=== PATIENT | male | born 1955 | race Hispanic/Latino ===

== ENCOUNTER → 2024-08-02 | Day surgery (SDC) | payer MEDICARE ==
[2024-07-29 11:56] LABS: BASOPHILS # (AUTO) 0.1 (0.0-0.1); BASOPHILS % 0.8 % (0.0-1.0); EOSINOPHILS # (AUTO) 0.2 (0.0-0.4); EOSINOPHILS % 2.7 % (0.0-6.0); HEMATOCRIT 43.1 % (38.2-49.6); HEMOGLOBIN 14.1 g/dL (14.0-18.0); LYMPHOCYTES % 17.6 % (18.0-39.1); MEAN CORPUSCULAR HEMOGLOBIN 30.3 pg (28-32); MEAN CORPUSCULAR HGB CONC 32.7 g/dL (31-35); MEAN CORPUSCULAR VOLUME 92.7 fL (81-99); MONOCYTES # (AUTO) 0.6 (0.2-0.8); MONOCYTES % 9.8 % (4.4-11.3); NEUTROPHILS # (AUTO) 4.1 (2.1-6.9); NEUTROPHILS % 68.8 % (38.7-80.0); PLATELET COUNT 156 x10e3/uL (140-360); RED BLOOD COUNT 4.65 x10e6/uL (4.3-5.7); RED CELL DISTRIBUTION WIDTH 13.2 % (11.7-14.4); WHITE BLOOD COUNT 5.91 x10e3/uL (4.8-10.8)
[~2024-08-02] MED LIST: CENTRUM MEN'S1 EACH PO; CO Q-10100 MG PO; DEXAMETHASONE SOD PHOS INJ 4 MG/ML SDV ONE; GLYCOPYRROLATE INJ 0.2 MG/ML VIAL ONE; IOPAMIDOL 610MG/1ML 300 MG/ML VIAL IV ONE; LIDOCAINE HCL 2% LOCAL INJ 5 ML SDV VIAL INJ ONE; LUMIGAN2.5 M1 OP; ONDANSETRON HCL INJ 2MG/ML 2ML 2 MG/ML VIAL ONE; PROPOFOL IV EMULSION 10 MG/ML 20 ML VIAL ONE; SEVOFLURANE INHAL SOLN 250 ML PEN BTL ONE; SIMVASTATIN20 MG PO; VIT D PO; ZESTRIL10 MG PO; calcium PO
[2024-08-02] MEDS: CEFTRIAXONE 1 GM VIAL ONE (06:05)
[2024-08-02] MEDS: LACTATED RINGER'S 1,000 ML ONE (06:05)
[2024-08-02 07:20] VITALS: TEMP 97.7
[2024-08-02 08:10] VITALS: BP 160/80; PULSE 68; RESP 16; O2SAT 97
== END | disposition home or self-care (01) ==
LOC: OR 05:23
PROVIDERS: ATTEND Urology
DX: N35.812 Other bulbous urethral stricture, male (principal); N32.89 Other specified disorders of bladder; N40.0 Benign prostatic hyperplasia without lower urinary tract symptoms; I10 Essential (primary) hypertension; E78.5 Hyperlipidemia, unspecified; F32.A Depression, unspecified; K28.9 Gastrojejunal ulcer, unspecified as acute or chronic, without hemorrhage or perforation; Z88.8 Allergy status to other drugs, medicaments and biological substances; Z01.810 Encounter for preprocedural cardiovascular examination; Z01.812 Encounter for preprocedural laboratory examination; Z01.818 Encounter for other preprocedural examination; Z79.899 Other long term (current) drug therapy
CPT/HCPCS: 36415; 52281; 71046; 74420; 85025; 93005; C1758; J0696; J1100; J2001; J2405; J2704; J7121; Q9967

== ENCOUNTER → 2025-01-03 | Day surgery (SDC) | payer MEDICARE ==
[2025-01-01 11:43] LABS: BASOPHILS # (AUTO) 0.1 (0.0-0.1); BASOPHILS % 0.8 % (0.0-1.0); EOSINOPHILS # (AUTO) 0.2 (0.0-0.4); EOSINOPHILS % 2.7 % (0.0-6.0); HEMATOCRIT 41.5 % (38.2-49.6); HEMOGLOBIN 13.9 g/dL (14.0-18.0); LYMPHOCYTES % 15.9 % (18.0-39.1); MEAN CORPUSCULAR HEMOGLOBIN 29.8 pg (28-32); MEAN CORPUSCULAR HGB CONC 33.5 g/dL (31-35); MEAN CORPUSCULAR VOLUME 88.9 fL (81-99); MONOCYTES # (AUTO) 0.7 (0.2-0.8); MONOCYTES % 11.8 % (4.4-11.3); NEUTROPHILS # (AUTO) 4.3 (2.1-6.9); NEUTROPHILS % 68.6 % (38.7-80.0); PLATELET COUNT 165 x10e3/uL (140-360); RED BLOOD COUNT 4.67 x10e6/uL (4.3-5.7); RED CELL DISTRIBUTION WIDTH 12.7 % (11.7-14.4); WHITE BLOOD COUNT 6.21 x10e3/uL (4.8-10.8)
[~2025-01-03] MED LIST changes: +ACETAMINOPHEN 1000 MG/100 ML 100 ML IV ONE; +CALCIUM ACETAT667 MG PO; +CENTRUM ADULTS1 EACH PO; +COQ-10100 MG PO; +EPHEDRINE SULFATE INJ 50 MG/ML VIAL ONE; +FENTANYL CITRATE/PF 100MCG/2 ML INJ ONE; -GLYCOPYRROLATE INJ 0.2 MG/ML VIAL ONE; -IOPAMIDOL 610MG/1ML 300 MG/ML VIAL IV ONE
[2025-01-03] MEDS: CEFTRIAXONE 1 GM VIAL ONE (06:21)
[2025-01-03] MEDS: LACTATED RINGER'S 1,000 ML ONE (06:22)
[2025-01-03 08:42] VITALS: TEMP 96.9
[2025-01-03] MEDS: HYDRALAZINE HCL 20 MG/ML VIAL ONE (09:10)
[2025-01-03 09:30] VITALS: BP 178/75; PULSE 71; RESP 18; O2SAT 100
== END | disposition home or self-care (01) ==
LOC: OR 05:14
PROVIDERS: ATTEND Urology
DX: N20.1 Calculus of ureter (principal); Z96.0 Presence of urogenital implants; N13.30 Unspecified hydronephrosis; N35.919 Unspecified urethral stricture, male, unspecified site; N39.0 Urinary tract infection, site not specified; N40.1 Benign prostatic hyperplasia with lower urinary tract symptoms; R35.1 Nocturia; N43.40 Spermatocele of epididymis, unspecified; N52.9 Male erectile dysfunction, unspecified; I10 Essential (primary) hypertension; E78.5 Hyperlipidemia, unspecified; F32.A Depression, unspecified; Z01.810 Encounter for preprocedural cardiovascular examination; Z01.812 Encounter for preprocedural laboratory examination; Z01.818 Encounter for other preprocedural examination; Z79.899 Other long term (current) drug therapy
CPT/HCPCS: 36415; 50590; 74018; 85025; 93005; J0131; J0360; J0696; J1100; J2003; J2405; J2704; J3010; J7121

== ENCOUNTER → 2025-01-17 | Day surgery (SDC) | payer MEDICARE ==
[~2025-01-17] MED LIST changes: +ACETAMINOPHEN/CODEINE 300MG - 30MG TAB ONE; -EPHEDRINE SULFATE INJ 50 MG/ML VIAL ONE; +HYDRALAZINE HCL 20 MG/ML VIAL ONE
[2025-01-17] MEDS: CEFTRIAXONE 1 GM VIAL ONE (06:15)
[2025-01-17] MEDS: LACTATED RINGER'S 1,000 ML ONE (06:15)
[2025-01-17] MEDS: PHENAZOPYRIDINE HCL 100 MG TAB ONE (09:22)
[2025-01-17] MEDS: FENTANYL CITRATE/PF 100MCG/2 ML INJ ONE (09:25)
[2025-01-17 10:00] VITALS: BP 178/66; PULSE 74; RESP 15; TEMP 97.4; O2SAT 97
== END | disposition home or self-care (01) ==
LOC: OR 05:47
PROVIDERS: ATTEND Urology
DX: N20.0 Calculus of kidney (principal); Z46.6 Encounter for fitting and adjustment of urinary device; N40.0 Benign prostatic hyperplasia without lower urinary tract symptoms; Z98.890 Other specified postprocedural states; I10 Essential (primary) hypertension; E78.5 Hyperlipidemia, unspecified; F32.A Depression, unspecified; Z79.899 Other long term (current) drug therapy
CPT/HCPCS: 52351; 74420; C1758 ×2; C1769; J0131; J0360; J0696; J1100; J2003; J2405; J2704; J3010; J7121